=== PATIENT | male | born 1940 | race Caucasian/White ===

== ENCOUNTER 2017-01-15 08:54 | Day surgery (SDC) | payer OTHER ==
[~2017-01-15] VITALS: Ht 177.8 cm; Wt 93.0 kg
[~2017-01-15 08:54] MED LIST: AMIODARONE HCL200 MG PO; AMLODIPINE BESYL5 MG PO; ATORVASTATIN CA10 MG PO; BENADRYL25 MG PO; CARDIZEM60 MG PO; COLACE50 MG PO; COUMADIN1 MG PO; Cordarone, Pacerone PO; Coumadin,Jantoven PO; DOK PLUS TABLE1 EACH PO; Ecotrin PO; Feosol PO; HYDROCHLOROTH12.5 M3 PO; HYDROCODON-ACE1 EAC7 PO; INDERAL10 MG PO; IRON325 M1 PO; Inderal PO; LANOXIN,DIGIT0.25 MG PO; LISINOPRIL; LOVENOX80 MG/0.8 SC; Lanoxin,Digitek PO; Lopressor PO; NOHOMEMEDS; OXYCODONE HCL5 M1 PO; OXYCODONE HCL5 MG PO; PACERONE200 MG PO; PROPRANOLOL HCL20 MG PO; Percocet 5/325,Endoc PO; SIMVASTATIN40 MG PO; TYLENOL REGULA325 MG PO; Tylenol Regular Stre PO; WARFARIN SODIU2.5 MG PO; WARFARIN SODIUM5 MG PO; ZOFRAN4 MG PO; [UNRECOGNIZED DRUG - REMARK] TP; celeBREX PO
== END 2017-01-15 11:20 | disposition home or self-care (01) ==
LOC: CATH 08:54
PROC: 5A2204Z Restoration of Cardiac Rhythm, Single (ICD-10-PCS; principal; 2017-01-15)
DX: I48.1 Persistent atrial fibrillation (principal); I11.9 Hypertensive heart disease without heart failure; E78.5 Hyperlipidemia, unspecified; G47.33 Obstructive sleep apnea (adult) (pediatric); Z79.01 Long term (current) use of anticoagulants; Z79.899 Other long term (current) drug therapy; Z83.3 Family history of diabetes mellitus; Z80.8 Family history of malignant neoplasm of other organs or systems; Z82.0 Family history of epilepsy and other diseases of the nervous system
CPT/HCPCS: 93005